=== PATIENT | female | born 1960 | race Caucasian/White ===

== ENCOUNTER → 2023-11-24 12:07 | Outpatient (REF) | payer BC, SELFPAY | LOC: HWWDC 12:07 | PROVIDERS: ATTENDING PHYSICIAN Physician Assistant Medical | DX: Z12.31 Encounter for screening mammogram for malignant neoplasm of breast (principal) | CPT/HCPCS: 77063; 77067 ==

== ENCOUNTER → 2023-11-28 07:10 | Outpatient (REF) | payer BC, SELFPAY | LOC: RCS 07:10 | PROVIDERS: ATTENDING PHYSICIAN Physician Assistant Medical | DX: R01.2 Other cardiac sounds (principal) | CPT/HCPCS: 93306 ==

== ENCOUNTER → 2025-06-02 10:23 | Outpatient (REF) | payer BC, SELFPAY | LOC: HWWDC 10:23 | PROVIDERS: ATTENDING PHYSICIAN Obstetrics & Gynecology Gynecology; FAMILY PHYSICIAN Family Medicine | DX: Z78.0 Asymptomatic menopausal state (principal); Z12.31 Encounter for screening mammogram for malignant neoplasm of breast | CPT/HCPCS: 77063; 77067; 77080 ==